=== PATIENT | female | born 1985 | race Caucasian/White ===

== ENCOUNTER 2020-07-09 20:19 | Outpatient (REF) | payer MEDICARE, MEDICAID, SELFPAY ==
[2020-07-09 21:02] LABS: HCT 39.4 % (36.0-46.0); HGB 12.6 g/dL (11.2-15.7); MCH 31.1 pg (27.0-33.0); MCV 97.3 fL (80-95); MPV 10.1 fL (8.0-11.0); Platelet Count 192 10^3/uL (130-400); RBC 4.05 10^6/uL (3.93-5.22); RDW 12.7 % (11.7-14.6); RDW-SD 45.5 fL; WBC 4.52 10^3/uL (4.4-10.8)
[2020-07-09 21:29] LABS: ALT 24 U/L (14-59); AST 18 U/L (15-37); Albumin 4.1 g/dL (3.4-5.0); Alkaline Phosphatase 38 U/L (46-116); Anion Gap 5.6 mmol/L (3-11); BUN 12 mg/dL (7-18); Bilirubin, Total 0.4 mg/dL (0.2-1.0); CO2 29.4 mmol/L (21.0-32.0); CREATININE 0.92 mg/dL (0.55-1.02); Calcium 8.7 mg/dL (8.5-10.1); Chloride 104 mmol/L (98-107); Glucose 73 mg/dL (74-106); Magnesium 1.9 mg/dL (1.8-2.4); Potassium 4.6 mmol/L (3.5-5.1); Sodium 139 mmol/L (136-145); TSH (W/Ref FT4) 1.51 uIU/mL (0.36-3.74); Total Protein 7.1 g/dL (6.4-8.2)
== END 2020-07-09 20:39 ==
LOC: NCHCN 20:19
PROVIDERS: PCP Family Medicine; Visit Provider Family Medicine
DX: E03.9 Hypothyroidism, unspecified (principal); F98.8 Other specified behavioral and emotional disorders with onset usually occurring in childhood and adolescence; Z00.00 Encounter for general adult medical examination without abnormal findings; S06.9X9A Unspecified intracranial injury with loss of consciousness of unspecified duration, initial encounter
CPT/HCPCS: 80053; 85027; 83735; 84443

== ENCOUNTER 2021-09-14 02:50 | Outpatient (CLI) | payer MEDICARE, MEDICAID, SELFPAY ==
[2021-09-14 16:59] LABS: ALT 24 U/L (14-59); AST 14 U/L (15-37); Alkaline Phosphatase 40 U/L (46-116); Anion Gap 5.5 mmol/L (3-11); BUN 19 mg/dL (7-18); Bilirubin, Total 0.2 mg/dL (0.2-1.0); CO2 27.5 mmol/L (21.0-32.0); CREATININE 0.9 mg/dL (0.55-1.02); Calcium 8.4 mg/dL (8.5-10.1); Chloride 108 mmol/L (98-107); Glucose 85 mg/dL (74-106); Potassium 4.3 mmol/L (3.5-5.1); Sodium 141 mmol/L (136-145); TSH (W/Ref FT4) 1.53 uIU/mL (0.36-3.74); Total Protein 7.1 g/dL (6.4-8.2)
== END 2021-09-14 02:51 | disposition home or self-care (01) ==
LOC: LBO 02:50
PROVIDERS: PCP Family Medicine; Visit Provider Family Medicine
DX: E03.9 Hypothyroidism, unspecified (principal); F34.89 Other specified persistent mood disorders
CPT/HCPCS: 36415; 80053; 84443

== ENCOUNTER 2023-03-07 09:50 | Outpatient (CLI) | payer MEDICARE, MEDICAID, SELFPAY ==
[2023-03-07 13:10] LABS: ALT 17 U/L (14-59); AST 16 U/L (15-37); Albumin 3.5 g/dL (3.4-5.0); Alkaline Phosphatase 42 U/L (46-116); BUN 14 mg/dL (7-18); Bilirubin, Total 0.2 mg/dL (0.2-1.0); CREATININE 0.9 mg/dL (0.55-1.02); Calcium 8.9 mg/dL (8.5-10.1); Chloride 104 mmol/L (98-107); Estimated GFR 83.92 (mL/min/1.73m2); Glucose 68 mg/dL (74-106); Potassium 4.1 mmol/L (3.5-5.1); Sodium 138 mmol/L (136-145)
== END 2023-03-07 09:51 | disposition home or self-care (01) ==
LOC: LOS 09:50
PROVIDERS: PCP Family Medicine; Referring Provider Family Medicine; Visit Provider Family Medicine
DX: E03.9 Hypothyroidism, unspecified (principal); I10 Essential (primary) hypertension
CPT/HCPCS: 36415; 80053; 84443

== ENCOUNTER 2024-03-19 03:47 | Outpatient (CLI) | payer MEDICARE, MEDICAID, SELFPAY ==
[2024-03-19 12:26] LABS: HGB 12.3 g/dL (11.2-15.7); MCH 30.9 pg (27.0-33.0); MCHC 31.5 % (32.0-36.0); MCV 98 fL (80-95); MPV 9.6 fL (8.0-11.0); Platelet Count 199 10^3/uL (130-400); RBC 3.98 10^6/uL (3.93-5.22); RDW 13.2 % (11.7-14.6); RDW-SD 47.7 fL; WBC 4.94 10^3/uL (4.4-10.8)
[2024-03-19 13:14] LABS: ALT 21 U/L (14-59); AST 16 U/L (15-37); Albumin 3.6 g/dL (3.4-5.0); Alkaline Phosphatase 50 U/L (46-116); Anion Gap 6.6 mmol/L (3-11); BUN 13 mg/dL (7-18); Bilirubin, Total 0.35 mg/dL (0.2-1.0); CO2 29.4 mmol/L (21.0-32.0); Calcium 8.8 mg/dL (8.5-10.1); Calculated LDL 231 mg/dL (<100); Chloride 106 mmol/L (98-107); Cholesterol 300 mg/dL (<200); Estimated GFR 73.49 (mL/min/1.73m2); Glucose 82 mg/dL (74-106); HDL Cholesterol 53 mg/dL (40-60); Potassium 4.2 mmol/L (3.5-5.1); Sodium 142 mmol/L (136-145); TSH (W/Ref FT4) 2.01 uIU/mL (0.36-3.74); Triglyceride 80 mg/dL (<150)
== END 2024-03-19 03:48 | disposition home or self-care (01) ==
LOC: LOS 03:48
PROVIDERS: PCP Family Medicine; Visit Provider Family Medicine
DX: E03.9 Hypothyroidism, unspecified (principal); I10 Essential (primary) hypertension; Z00.00 Encounter for general adult medical examination without abnormal findings
CPT/HCPCS: 36415; 80053; 80061; 85027; 84443

== ENCOUNTER 2024-07-09 01:49 | Outpatient (CLI) | payer MEDICARE, MEDICAID, SELFPAY ==
--- NOTE | 2024-07-09 13:14 | DI.RAD_ITS ---
Exam(s) XR FOOT LT COMPLETE EXAM: XR FOOT LT COMPLETE CLINICAL HISTORY: Toe pain left foot,lt foot pain,m79.675,m79.672. TECHNIQUE: 2D digital imaging was performed. Three views. COMPARISON: No exams were available for comparison FINDINGS: BONES: No acute fracture is present. No bony destructive lesion is seen. JOINTS: No dislocation present. No significant degenerative changes. SOFT TISSUE: Normal. IMPRESSION: Unremarkable radiographs of the left foot. DATA REPOSITORY: RADIATION DOSE DELIVERED:
== END 2024-07-09 02:09 ==
LOC: DI 01:50
PROVIDERS: PCP Family Medicine; Visit Provider Podiatrist
DX: M79.672 Pain in left foot (principal); M79.675 Pain in left toe(s)
CPT/HCPCS: 73630

== ENCOUNTER 2025-06-09 01:52 | Outpatient (CLI) | payer MEDICARE, MEDICAID, SELFPAY ==
[2025-06-09 15:04] LABS: TSH (W/Ref FT4) 2.90 uIU/mL (0.55-4.78)
[2025-06-09 15:11] LABS: ALT 27 U/L (10-49); AST 22 U/L (<34); Albumin 4.1 g/dL (3.2-5.0); Alkaline Phosphatase 42 U/L (46-116); Anion Gap 8.4 mmol/L (3-11); BUN 17 mg/dL (9-23); Bilirubin, Total 0.2 mg/dL (0.2-1.2); CO2 26.6 mmol/L (20.0-31.0); Calcium 8.9 mg/dL (8.3-10.6); Chloride 109 mmol/L (98-107); Cholesterol 189 mg/dL (<200); Glucose 79 mg/dL (74-106); HDL Cholesterol 50 mg/dL (>or=50); Potassium 4.5 mmol/L (3.5-5.1); Sodium 144 mmol/L (136-145); Total Protein 6.6 g/dL (5.7-8.2)
== END 2025-06-09 01:53 | disposition home or self-care (01) ==
LOC: LOS 01:52
PROVIDERS: PCP Family Medicine; Visit Provider Family Medicine
DX: E03.9 Hypothyroidism, unspecified (principal); Z00.00 Encounter for general adult medical examination without abnormal findings; I10 Essential (primary) hypertension
CPT/HCPCS: 36415; 80053; 80061; 84443